=== PATIENT | female | born 1950 | race Caucasian/White ===

== ENCOUNTER 2017-03-02 05:29 | Day surgery (SDC) | payer OTHER ==
[~2017-03-02] VITALS: Ht 157.5 cm; Wt 72.6 kg
[2017-03-02] MEDS ORDERED: LR 1,000 ML IV SCH (08:41)
[2017-03-02] MEDS ORDERED: MEPERIDINE HCL/PF 25 MG/ML DISP.SYRIN IVP PRN (08:45)
[2017-03-02] MEDS ORDERED: HYDROmorphone 1 MG INJ. 1 MG/ML AMPUL IVP PRN (08:45)
[2017-03-02] MEDS ORDERED: HYDROmorphone 2 MG/ML VIAL IVP PRN ×2 (08:45)
[2017-03-02] MEDS ORDERED: IBUPROFEN 800 MG TABLET PO PRN (09:00)
[2017-03-02] MEDS ORDERED: ONDANSETRON HCL 4 MG/2 ML VIAL IVP PRN (09:00)
[2017-03-02] MEDS ORDERED: OXYCODONE/ACETAMINOPHEN 5-325 TABLET PO PRN ×2 (09:00)
[2017-03-02 10:09] VITALS: BP_SYST 109
== END 2017-03-02 10:55 | disposition home or self-care (01) ==
LOC: SDS 05:29
PROVIDERS: ATTEND Obstetrics & Gynecology
DX: N84.0 Polyp of corpus uteri (principal)
CPT/HCPCS: 36415; 58558; 86886; 86900; 86901; 88305; J7120